=== PATIENT | female | born 1975 | race Caucasian/White ===

== ENCOUNTER 2018-04-08 14:20 | Outpatient (RCR) | payer BC, SELFPAY ==
--- NOTE | 2018-04-08 08:58 | PTTR_ITS ---
DATE: 04/08/18 SUBJECTIVE: Pt states that she is about 50-75% better and she was actually able to perform a 12 mile run the other day with only minimal discomfort. OBJECTIVE: Manual therapy: ([id number]). Pt placed in the supine position assessed very quickly through forefoot position of the ankle. She appears to have a significant forefoot varus with no significant postural abnormalities worthy of note at the rear foot and she is mobilized with a gentle stretch through the gastroc with the knee extended and then IASTM complete with long brush strokes in the grain of the muscle tissue and then cross grain feathering techniques for down regulation. This is done mainly for mechanoreceptors stimulation but also tissue remodeling particularly through the medial gastroc head. She is then seen by Victorino Ayala PT for consultation for orthotic fabrication. Direct treatment time: 25 minutes Total treatment time: 25 minutes.
--- NOTE | 2018-04-08 14:12 | PTTR_ITS ---
DATE: 04/08/18 SUBJECTIVE: Allie complains of intermittent discomfort throughout the posterior medial aspect of the L lower leg. This generally occurs with running and stretching and palpation. 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 6 weeks ago. She is being by Dr. Victorino Alfred, who asked for my opinion regarding orthotic devices. Allie has been an avid runner through high school and college, and continues to run on a regular basis.She is scheduled to run the [employer] in July and is trying to stay on schedule; she ran 12 miles the other day. She generally runs 30-40 miles/week. In the standing position she is a pronator, which is associated with calcaneal valgus and forefoot abduction. She has some mild tibial varum. She also has hypertrophic MP joints of her great toes, L greater than R.She had some knee issues when running in and has been wearing orthotic devices since. These seem to have helped her knee pain. Her current orthotic device is a semi-rigid orthotic in good condition. Articular: Bilateral hip, knee, talocrural, subtalar and midtarsal movements are full and painless with movement. Negative pain with resistance to the posterior tibialis mechanism. Heel raising on the L creates some calf discomfort. Also, when placed on stretch she feels more tension through the medial aspect of her calf compared to the contralateral side. Palpation:She has tenderness throughout the entire calf, particularly with the medial gastroc belly. She has some mild tenderness over the posterior tibialis muscle. Nontender over the tendon and I can feel the attachment at the navicula. Subtalar neutral shows that she has a significant forefoot varus of approx. 12-13 degrees. Her rear foot alignment is WNL. Assessment:It appears she has suffered a medial gastroc belly tear L calf 6 weeks ago. She is improving and is responding well to the IASTM techniques, but she is symptomatic when she is running long distance.She ran a distance of 12 miles recently and has tried some cross training with biking and aqua jogging. I encourage her to continue with the low impact type activities to allow further healing to occur.She doesn't need to peak until July and she is still in a weakened state.She is to gradually increase her WB activities as she further heals. I do not see the need for changing her orthotic devices. It is comfortable and it seems to have had a positive effect on her knees. I don't think they had anything to do with her recent gastroc tear.She does have some early to moderate MP degenerative changes of her great toes, but still relatively good mobility of up to 60 degrees of extension. Plan: Will hold off on making any changes with her orthotic devices. I encourage her to continue to pursue treatment with Victorino Alfred DPT if she feels that this has been helpful. Therapeutic procedures ([id number]). Direct treatment time: 30 min Total treatment time: 30 min DLW/fw
== END 2018-05-02 23:59 | disposition home or self-care (01) ==
LOC: PT 14:20
PROVIDERS: PCP Nurse Practitioner Family; Referring Provider Nurse Practitioner Family; Visit Provider Nurse Practitioner Family
DX: M79.662 Pain in left lower leg (principal); M25.561 Pain in right knee; R26.89 Other abnormalities of gait and mobility; M25.851 Other specified joint disorders, right hip
CPT/HCPCS: 97110; 97140

== ENCOUNTER 2020-06-10 02:48 | Outpatient (CLI) | payer BC, SELFPAY ==
[2020-06-10 07:20] LABS: Abs Immature Grans 0.02 10^3/uL (0.0-0.06); Absolute Basophil Count 0.02 10^3/uL (0.0-0.2); Absolute Eosinophil Count 0.13 10^3/uL (0.0-0.7); Absolute Monocyte Count 0.36 10^3/uL (0.1-0.8); Absolute Neutrophil Count 2.55 10^3/uL (1.2-6.7); Basophils % 0.5; Eosinophils % 3.1; HCT 41.8 % (36.0-46.0); HGB 14.4 g/dL (11.2-15.7); Immature Grans % 0.5; Lymphocytes % 26.3; MCH 31.4 pg (27.0-33.0); MCHC 34.4 % (32.0-36.0); MCV 91.3 fL (80-95); MPV 9.5 fL (8.0-11.0); Monocytes % 8.6; Nucleated RBC 0 %; Platelet Count 212 10^3/uL (130-400); RBC 4.58 10^6/uL (3.93-5.22); RDW 11.9 % (11.7-14.6); RDW-SD 39.5 fL; WBC 4.18 10^3/uL (4.4-10.8)
[2020-06-10 08:09] LABS: Anion Gap 8.8 mmol/L (3-11); BUN 15 mg/dL (7-18); CO2 26.2 mmol/L (21.0-32.0); CREATININE 0.69 mg/dL (0.55-1.02); Calcium 8.7 mg/dL (8.5-10.1); Calculated LDL 95 mg/dL (<100); Chloride 106 mmol/L (98-107); Cholesterol 181 mg/dL (<200); Glucose 91 mg/dL (74-106); HDL Cholesterol 73 mg/dL (40-60); Potassium 4.4 mmol/L (3.5-5.1); Sodium 141 mmol/L (136-145); TSH (W/Ref FT4) 2.16 uIU/mL (0.36-3.74); Triglyceride 68 mg/dL (<150)
== END 2020-06-10 03:08 ==
PROVIDERS: PCP Nurse Practitioner Family; Visit Provider Family Medicine
DX: Z00.00 Encounter for general adult medical examination without abnormal findings (principal); Z13.220 Encounter for screening for lipoid disorders; Z13.228 Encounter for screening for other metabolic disorders; Z13.29 Encounter for screening for other suspected endocrine disorder
CPT/HCPCS: 36415; 80048; 80061; 84443; 85025

== ENCOUNTER 2021-05-16 15:01 | Outpatient (REF) | payer BC, SELFPAY ==
[2021-05-17 14:18] LABS: COVID-19 RT-PCR UVMMC Result Negative (Negative)
== END 2021-05-16 15:02 | disposition home or self-care (01) ==
LOC: NCHCN 15:01
PROVIDERS: PCP Nurse Practitioner Family; Referring Provider Nurse Practitioner Family; Visit Provider Nurse Practitioner Family
DX: Z20.822 Contact with and (suspected) exposure to COVID-19 (principal)
CPT/HCPCS: U0003

== ENCOUNTER 2021-06-06 09:55 | Outpatient (REF) | payer BC, SELFPAY ==
[2021-06-07 09:34] LABS: Hepatitis C Ab w Rflx HCV PCR Negative (Negative)
[2021-06-07 09:55] LABS: HIV-1/2 Ag & Ab Screen Negative (Negative)
[2021-06-07 16:29] LABS: COVID-19 RT-PCR UVMMC Result Negative (Negative)
== END 2021-06-06 09:56 | disposition home or self-care (01) ==
LOC: NCHCN 09:55
PROVIDERS: PCP Nurse Practitioner Family; Visit Provider Nurse Practitioner Family
DX: Z00.00 Encounter for general adult medical examination without abnormal findings (principal); Z11.4 Encounter for screening for human immunodeficiency virus [HIV]; Z11.59 Encounter for screening for other viral diseases; Z20.9 Contact with and (suspected) exposure to unspecified communicable disease; F41.9 Anxiety disorder, unspecified
CPT/HCPCS: 86803; 87389; U0003

== ENCOUNTER 2022-05-04 09:24 | Emergency (ER) | payer BC, SELFPAY ==
[2022-05-04 09:28] VITALS: BP 139/59; PULSE 84; RESP 17; TEMP 36.8; O2SAT 100
[2022-05-04] MEDS: Ibuprofen 600 MG TAB PO (09:53)
--- NOTE | 2022-05-04 10:35 | DI.RAD_ITS ---
Exam(s) XR TIB/FIB RT EXAM: XR TIB/FIB RT CLINICAL HISTORY: dog bite TECHNIQUE: COMPARISON: No exams were available for comparison FINDINGS: Two views were obtained and show apparent soft tissue defect of the mid calf laterally. No underlyin g bony abnormality or foreign body is seen. IMPRESSION: RADIATION DOSE DELIVERED: Total DLP
--- NOTE | 2022-05-04 10:53 | W.ED.GENAD ---
Discharge Plan Disposition Patient Disposition: HOME Condition: Stable Discharge Details Clinical Impression: Dog bite of right lower leg Primary Care Provider: Twila Morgan ED Provider: Aydin Schultz Home Meds and New Rx's Prescriptions: New amoxicillin-pot clavulanate 875-125 mg tablet 1 tab PO BID 5 Days Qty: 10 0RF Continued bisacodyl [Dulcolax (bisacodyl)] 5 mg tablet,delayed release (DR/EC) 5 mg PO ONCE Qty: 4 0RF Rx Instructions: Take according to provider's instructions for colonoscopy prep. polyethylene glycol 3350 17 gram/dose powder 17 g PO ONCE Qty: 238 0RF Rx Instructions: To be taken as directed by prescriber's office for colonoscopy prep. Discharge Instructions Instructions: Animal Bite (ED) Additional Instructions: As discussed watch for any signs of worsening infection and return immediately if these occur. Otherwise take the antibiotic as prescribed and until fully completed. It is also recommended that you take a probiotic at least once daily in between your antibiotic doses. If you do develop some loose stools you may also take 1 glass of Metamucil/fiber supplement with your probiotic to see if this helps. Watch for any signs of infection and return immediately to the emergency department if these occur. Otherwise keep dressing in place for the next 24-48 hours and then keep wound clean and dry. Return to the emergency department 14 days for suture removal. Referrals: Twila Morgan [Primary Care Provider] - (As needed for reassessment) Discharge Data Discharge Date/Time-TO BE ENTERED AT DEPARTURE: 05/04/22 11:19 Medical Decision Making Patient presenting to the emergency department for dog bite to the right lower leg. Patient has a 3 and 4 cm superficial laceration to the right lower leg but there is also a 1-1/2 cm laceration to the anterior leg and a 1 and half centimeter lacerations to the posterior calf. There is surrounding tenderness otherwise exam is unremarkable. Patient is up-to-date on her tetanus. Did discuss with patient rabies prophylaxis but at this time this treatment is deferred due to it being a neighbors domesticated dog. Radiological imaging was performed due to a larger dog bite. No obvious findings were noted for bony involvement. Wounds were thoroughly irrigated and loosely approximated. Patient placed upon Augmentin for 5 days and return and follow-up precautions discussed. After discussion of diagnosis and plan of care patient has no further needs, questions, or concerns and states clear understanding to return to the emergency department for any worsening symptoms. This documentation was generated using [employer] system, please disregard any oddities of phrase or misspellings. Imaging Data Radiologic Study: Attestation: I personally reviewed and interpreted this imaging study as follows: Imaging: X-Ray Radiologist's impression: FINDINGS: Two views were obtained and show apparent soft tissue defect of the mid calf laterally. No underlying bony abnormality or foreign body is seen. IMPRESSION: HPI General Mode of arrival: ambulatory. Date/Time Provider Initiated Documentation: 05/04/22 09:38. Limitations to Documentation: no limitations. Information obtained by: RN notes reviewed. History of Present Illness 47 year old F presents to the emergency department with the chief complaint of Right leg dog bite, described as moderate, with intensity rated at 8. Quality is described as aching and sharp, and is localized to the right and lower extremity. Patient reports no radiation. Patient started experiencing this minute(s) (30) and it has been constant. No relieving factors improve symptom(s), No exacerbating factors reported . Patient notes no other symptoms.. Patient did receive the following treatments prior to arrival, none Related Data Home Medications Medication Instructions Recorded Confirmed bisacodyl 5 mg tablet,delayed 5 mg PO ONCE #4 tabs 05/03/22 05/04/22 release (Dulcolax (bisacodyl)) polyethylene glycol 3350 17 17 g PO ONCE #238 grams 05/03/22 05/04/22 gram/dose oral powder amoxicillin 875 mg-potassium 1 tab PO BID 5 days #10 tabs 05/04/22 clavulanate 125 mg tablet Previous Rx's Medication Instructions Recorded bisacodyl 5 mg tablet,delayed 5 mg PO ONCE #4 tabs 05/03/22 release (Dulcolax (bisacodyl)) polyethylene glycol 3350 17 17 g PO ONCE #238 grams 05/03/22 gram/dose oral powder amoxicillin 875 mg-potassium 1 tab PO BID 5 days #10 tabs 05/04/22 clavulanate 125 mg tablet Allergies Allergy/AdvReac Type Severity Reaction Status Date / Time No Known Allergies Allergy Verified 05/04/22 09:31 General Stated Complaint: AnimalBite CAROLA: 4 Review of Systems Narrative: 6 systems reviewed and unremarkable except what is marked below. Musculoskeletal Musculoskeletal: Denies joint swelling, Denies limited range of motion, Denies numbness and Denies tingling Integumentary/Breasts Skin/Breast: Reports as per HPI and Reports wounds Neurologic Neurologic: Denies numbness and Denies tingling PFSH All Active Problems (Updated 05/04/22 @ 11:07 by Aydin Schultz NP) Dog bite of right lower leg (Acute) Screening for colon cancer (Acute) Cerumen impaction (Acute) Medical History (Updated 05/04/22 @ 11:07 by Aydin Schultz NP) Anxiety Chronic headaches Epidermoid cyst Grief at loss of child Hearing loss Hip pain, left Palpitations Social History Smoking/Tobacco Use Status: Never Smoking risk assessment performed?: Yes Alcohol Intake: current Alcohol Intake frequency: a few times a month Alcohol type: other Drug use: Never Substance use type: does not use Do you feel safe at home: Yes Do you feel safe in your relationship?: Yes Exam Const General: cooperative, no acute distress and not ill appearing Orientation: alert, awake and oriented x3 Resp Effort & Inspection: normal respiratory effort, able to speak in complete sentences and no respiratory distress Cardio Rate: regular rate Rhythm: regular rhythm Pulses: normal peripheral pulses Skin General skin exam: no rashes or lesions noted Neuro General: patient alert, patient awake, patient oriented x3, moves all extremities and no focal motor deficits Sensory Exam: no sensory deficits noted Extrem General: capillary refill normal and normal exam except as noted Right lower extremity: lower leg Details: laceration (2 superficial and 2 deep lacerations) Upper/lower leg/hip images: 1. deep lac 1.5cm 2. superficial lac 4 cm 3. deep lac 1.5cm 4. superficial lac 3 cm Course Vital Signs Vital signs: Vital Signs Temperature 36.8 C 05/04/22 09:28 Pulse 84 05/04/22 09:28 Respiratory Rate 17 05/04/22 09:28 Blood Pressure 139/59 L 05/04/22 09:28 Pulse Oximetry 100 05/04/22 09:28 Temperature 36.8 C 05/04/22 09:28 Temperature Source Temporal Artery Scan 05/04/22 09:28 Pulse 84 05/04/22 09:28 Respiratory Rate 17 05/04/22 09:28 Respiratory Effort Non-Labored 05/04/22 09:29 Blood Pressure 139/59 L 05/04/22 09:28 Blood Pressure Position Sitting 05/04/22 09:28 Pulse Oximetry 100 05/04/22 09:28 Oxygen Delivery Method Room Air 05/04/22 09:28 Oxygen Flow Rate 0 05/04/22 09:28 Pain Level 8 05/04/22 09:28 Procedures Laceration Laceration 1: Site: lower extremity Side (If applicable): right Size (cm): 1.5 Description: linear and flap Depth: simple, single layer Local Anesthetic: Lidocaine 1% and with Epi Amount of anesthesia used (mL): 3 Pre-repair: wound explored, irrigated extensively and deep structures intact Skin layer closed with: other (Prolene) Size (cm): 4-0 Number of sutures: 2 Technique: simple, interrupted Laceration 2: Site: lower extremity Side (If applicable): right Size (cm): 1.5 Description: linear Depth: simple, single layer Local Anesthetic: Lidocaine 1% and with Epi Amount of anesthesia used (mL): 2 Pre-repair: wound explored, irrigated extensively and deep structures intact Skin layer closed with: other (prolene) Size (cm): 4-0 Number of sutures: 2 PAWSS Have you Been Recently Intoxicated or Drunk Within the Last 30 days?: No Have you Ever Experienced Previous Episodes of Alcohol Withdrawal?: No Have you ever Experienced Withdrawal Seizures?: No Have you ever Experienced Delirium Tremens(DT)s?: No Have you ever undergone Alcohol Rehabilitation Treatment (i.e, inpt ot outpatient treatment programs)?: No Have you ever Experienced Blackouts?: No Have you ever Combined Alcohol with other Downers within the last 90 days?: No Have you ever Combined Alcohol with any other Substance of Abuse during the last 90 days?: No Result: 0
[2022-05-04] MEDS: Amoxicillin 875/Clav. 125 TAB PO (11:16)
== END 2022-05-04 11:19 | disposition home or self-care (01) ==
PROVIDERS: Emergency Provider Nurse Practitioner Family; PCP Nurse Practitioner Family
DX: S81.811A Laceration without foreign body, right lower leg, initial encounter (principal); W54.0XXA Bitten by dog, initial encounter
CPT/HCPCS: 12002; 99283; 73590; 99284

== ENCOUNTER 2022-05-18 08:10 | Day surgery (SDC) | payer BC, SELFPAY ==
--- NOTE | 2022-05-17 19:23 | W.COLOREPORT ---
Colonoscopy Report Date of procedure: 05/18/22 Pre-op diagnosis general: crc screening Post-op diagnosis procedure note: other (normal) Surgeon: Gia Vu Anesthesia Type: General:No Airway Estimated blood loss (mL): 0 Pathology: none sent Complications: None Disposition: same day Prep: Miralax/Dulcolax Retraction Time: 8 mins Findings: After informed consent was obtained the patient was taken to the procedure room and placed in a left decubitous position. Monitors were applied and a time out was done. The patients name, date of , procedure, allergies to medications and metal in their body was reviewed. The patient was then sedated. Once sedated and comfortable a rectal exam was done. External exam was normal. Internal exam revealed a normal sphincter tone and no palpable masses. The scope was then introduced and retrofelexed. The prep was a BBPS 3 in all segments for total of 9 No internal hemorrhoids were identified. The scope was then advanced to the cecum difficulty. The TI and appendiceal orifice were identified. The scope was then slowly retracted over 8 minutes back into the rectum. There are no polyps, AVMs, diverticula or other abnormalities.. The Mucosa is pink and healthy with a normal vascular pattern. The is The scope was removed and the patient was woken up and taken back to Same day surgery in stable condition. The patient tolerated the procedure well and there were no immediate complications. Follow up: The patient should follow up in 10 years unless they develop changes in bowel habits or other new gastrointestinal complaints.
--- NOTE | 2022-05-17 19:24 | PDOC.DSDIS_ITS ---
Discharge Plan Disposition Patient Disposition: HOME Condition: Good Discharge Details Reason For Visit: colon scope Attending Provider: Gia Vu Primary Care Provider: Twila Morgan Home Meds and New Rx's Prescriptions: Discontinued bisacodyl [Dulcolax (bisacodyl)] 5 mg tablet,delayed release (DR/EC) 5 mg PO ONCE Qty: 4 0RF Rx Instructions: Take according to provider's instructions for colonoscopy prep. polyethylene glycol 3350 17 gram/dose powder 17 g PO ONCE Qty: 238 0RF Rx Instructions: To be taken as directed by prescriber's office for colonoscopy prep. Discharge Instructions Additional Instructions: DSU Colonoscopy Post- Op Instructions Instructions for Everyone who is given Anesthesia: For your safety, please do the following for the next twenty-four (24) hours: *Do Not operate a motor vehicle (car, truck, motorcycle, etc.) *Do Not drink alcoholic beverages or use any recreational drugs for the first 24 hours or while taking pain medications. The medications in your body may have a reaction that can be dangerous. *Do Not make any important decisions or sign any important papers. Findings: Normal Follow up: Repeat in 10 years time 1. No lifting over 20 pounds or strenuous activity for the first 24 hours after your procedure. After 24 hours there are no restrictions on your activity but you may feel fatigued for a few days. 2. After you arrive home you may have a light meal and return to your normal diet as you can tolerate it without feeling sick to your stomach. 3. You may have a bloated, gaseous feeling in your belly (abdomen) after a col onoscopy. Passing gas and belching will help. Walking or lying down on your left side with your knees flexed may relieve the discomfort. Call the office at [phone] (Office) or [phone] (Hospital) right away if you notice any of the following: a.Vomiting of blood or ?coffee ground stools?. b.Rectal bleeding 1Tbsp, blood clots or continuous bleeding. c.Severe belly (abdominal) pain. d.A hard distended belly (abdomen) and an inability to pass gas. 4. Please don?t expect to have a normal BM (bowel movement) for 2-3 days after your procedure. 5. If there are questions regarding the findings of your procedure, please contact your doctor 6. If you are unable to contact your doctor with a problem, contact the hospital at [phone]. 7. Continue all your regular medications unless directed otherwise. I understand the above instructions and have no questions. Signature of Patient or Adult Escort Name of Responsible Adult Escort Signature of Nurse Date/Time Activity:: see above Diet:: see above Discharge Orders Discharge Orders: Discharge Order (Routine); Ordered 05/17/22 Ordered By: Gia Vu
[2022-05-18 08:27] VITALS: BP 127/78; PULSE 74; RESP 18; TEMP 36.4; O2SAT 100
[2022-05-18] MEDS: Lactated Ringers 1,000 ML 80 ML IV (08:56)
--- NOTE | 2022-05-18 09:04 | ANES.PREOP_ITS ---
General Info Date of Service Date Performed: 05/18/22 Height: 5 ft 5 in Weight: 54.8 kg Body Mass Index (BMI): 20.0 Surgical Procedure: Operation Date: 05/18/22 09:50 Proposed Procedure Side Surgeon p Colonoscopy Gia Vu, Actual Procedure Side Surgeon p Colonoscopy Gia Vu, Pre-Op Diagnosis Post-Op Diagnosis colon scope Meds Allergies and Home Medications Allergies Allergy/AdvReac Type Severity Reaction Status Date / Time No Known Allergies Allergy Verified 05/04/22 09:31 Current Visit Medications: Current Medications Generic Name Dose Route Start Last Admin Trade Name Freq PRN Reason Stop Dose Admin Hyoscyamine Sulfate 0.125 mg 05/17/22 19:23 Hyoscyamine 0.125 Mg Sl/Oral/Chew SL DIRECTED PRN Ringer's Solution 1,000 mls @ 80 mls/hr 05/18/22 06:00 05/18/22 08:56 IV 06/16/22 23:59 80 mls/hr INFUSION SHER Administration IV Miscellaneous Supplies 1 each 05/18/22 06:00 Iv Access IV 06/16/22 23:59 DIRECTED SHER Ondansetron HCl 4 mg 05/17/22 19:23 Ondansetron 4 Mg/2 Ml Vial IVP Q4H PRN PRN Nausea / Vomiting Sodium Chloride 0 ml 05/18/22 06:00 Normal Saline Flush 10 Ml Syr IV 06/16/22 23:59 PRN PRN Sodium Chloride 0 ml 05/18/22 06:00 Normal Saline 10 Ml Vial IJ 06/16/22 23:59 DIRECTED PRN Sterile Water 0 ml 05/18/22 06:00 Water,Injection,Sterile 10 Ml Vial IJ 06/16/22 23:59 DIRECTED PRN PFSH Active Problems Active Problems: Problem Status Onset Code Cerumen impaction H61.20 Screening for colon cancer Z12.11 Dog bite of right lower leg S81.851A, W54.0XXA Medical History Medical History Anxiety Chronic headaches Epidermoid cyst Grief at loss of child Hearing loss Hip pain, left Palpitations Per pt. states its either anxiety of caffeine related Tobacco Smoking/Tobacco Use Status: Never Alcohol Alcohol Intake: current Alcohol intake frequency: a few times a month Alcohol ty pe: other Substance Use Substance use: Never Substance use type: does not use Vital Signs and Lab Results Vital Signs Most Recent Vital Signs in EMR: Most Recent Vital Signs Temp Pulse Resp BP Pulse Ox 36.4 C L 74 18 127/78 100 05/18/22 08:27 05/18/22 08:27 05/18/22 08:27 05/18/22 08:27 05/18/22 08:27 Point of Care Results Point of Care Results: POC- Test(urine) Negative 05/18/22 08:34 Lab Results Blood Type / Crossmatch: No Data to Display Complete Blood Count: No Data to Display Complete Metabolic Panel: No Data to Display Liver Function Panel: No Data to Display Coagulation Panel: No Data to Display Cardiac Panel: No Data to Display Arterial Blood Gas: No Data to Display Venous Blood Gas: No Data to Display Pancreas Panel: No Data to Display Thyroid Panel: No Data to Display Infectious Disease: No Data to Display Blood Cultures: No Data to Display Toxicology Panel: No Data to Display Panel: No Data to Display Anesthesia Assessment and Plan Anesthesia History Personal History: No History of Anesthesia Complications Family History: No Family History of Anesthesia Complications Exercise Tolerance Exercise Tolerance: Metabolic Equivalents>4 Cardiac & Pulmonary Exam Cardiac Exam: Normal S1/S2 Heart Sounds Pulmonary Exam: Clear Bilateral Breath Sounds Implantable Cardiac Device Does patient have a Pacemaker or an ICD?: No Airway Exam Known Difficult Airway: No Mallampati Class: 3 Mouth Opening: Normal (> 3cm) Thyromental Distance: Greater than 3 cm Neck Range of Motion: Full ROM Neck Circumference: Normal Teeth Condition: Normal Dentition ASA Classification ASA Score: ASA 2 Emergency Case?: No NPO Status NPO Status: NPO Clears >2 hours, Solids >8 hours Status Status: Negative HCG Anesthesia Plan Resuscitation Status: Full Code Anesthesia Technique: General Anesthesia Airway Planned: Natural Airway Monitors Used: Standard Monitors
--- NOTE | 2022-05-18 09:46 | W.ANESPOSTOP ---
Postoperative Evaluation Date, Time and Location Date Performed: 05/18/22 Time Performed: 09:46 Patient Location: Day Surgery Unit Vital Signs Most Recent Imported Vital Signs: Most Recent Vital Signs Temp Pulse Resp BP Pulse Ox 36.4 C L 74 18 127/78 100 05/18/22 08:27 05/18/22 08:27 05/18/22 08:27 05/18/22 08:27 05/18/22 08:27 Most Recent Manually Entered Vital Signs: Adult Blood Pressure: 100/60 Heart Rate: 62 Respirations: 12 Oxygen Saturation (%): 100 Temperature (C): 36.3 C Pain Score (0-10 Scale): 0 Pain Score Most Recent Pain Score: Most Recent Pain Score Pain Level 0 05/18/22 08:27 Assessment Mental Status: Awake (Alert & Oriented to Patient Baseline) Airway and Respiratory Function: Patent airway with normal (patient baseline) respiratory exam Cardiovascular Function: Hemodynamically Stable Hydration Status: Adequately Hydrated Nausea & Vomiting: No Nausea or Vomiting Pain: Pt. Denies Any Pain Peripheral Nerve Block: Patient did not receive a nerve block
[2022-05-18 09:48] VITALS: BP 100/60; PULSE 62; RESP 12; TEMPC 36.3; O2SAT 100
[2022-05-18 09:49] VITALS: BP 100/60; PULSE 60; RESP 16; TEMP 36.4; O2SAT 100
[2022-05-18 10:20] VITALS: BP 103/61; PULSE 57; RESP 16; TEMP 36.4; O2SAT 100
== END 2022-05-18 10:40 | disposition home or self-care (01) ==
LOC: SUR 08:11
PROVIDERS: PCP Nurse Practitioner Family; Visit Provider Surgery
PROC: 0DJD8ZZ Inspection of Lower Intestinal Tract, Via Natural or Artificial Opening Endoscopic (ICD-10-PCS; CPT 45378; principal; 2022-05-18 09:45)
DX: Z12.11 Encounter for screening for malignant neoplasm of colon (principal); F41.9 Anxiety disorder, unspecified
CPT/HCPCS: 45378; 81025

== ENCOUNTER 2022-07-02 14:56 | Outpatient (REF) | payer BC, SELFPAY ==
--- NOTE | 2022-07-02 10:00 | PAPFT_PTH ---
PATIENT: Allie Lassiter LOC: [facility]#:[id number] AGE/SX: 47/F ROOM: RE07/02/[address]: Twila Morgan : 1975 BED: DIS: 07/02/2022 SPEC #: [id number] RECD: 07/02/22 16:16 STATUS: FAHEEM REQ #: [id number] MARTITA: 07/02/22 10:[address]: Twila Morgan DEPT: [facility], [facility] Cytology RECD BY: Leatha De La Garza Tissues: 1 - CX/ENDOCX FOR PAP SMEARS Procedures: PAP THIN PREP/UVM Screening HPV DNA PROBE Comments: [id number]
== END 2022-07-02 14:57 | disposition home or self-care (01) ==
LOC: NCHCN 14:56
PROVIDERS: PCP Nurse Practitioner Family; Visit Provider Nurse Practitioner Family
DX: F41.8 Other specified anxiety disorders; L65.8 Other specified nonscarring hair loss; Z00.00 Encounter for general adult medical examination without abnormal findings; Z12.4 Encounter for screening for malignant neoplasm of cervix; Z11.51 Encounter for screening for human papillomavirus (HPV); Z01.419 Encounter for gynecological examination (general) (routine) without abnormal findings
CPT/HCPCS: 88142; 84443; 87624

== ENCOUNTER 2022-07-25 17:29 | Outpatient (REF) | payer BC, SELFPAY ==
--- NOTE | 2022-07-25 14:00 | SKI_PTH ---
PATIENT: Allie Lassiter LOC: [facility]#:[id number] AGE/SX: 47/F ROOM: RE07/25/[address]: Darrius Sharma : 1975 BED: DIS: 07/25/2022 SPEC #: [id number] RECD: 07/25/22 17:55 STATUS: FAHEEM REQ #: [id number] MARTITA: 07/25/22 14:[address]: Darrius Sharma DEPT: Surgical Specimen RECD BY: Leatha De La Garza ENTERED: 07/25/22 17:55 SP TYPE: HILARY CHILDRESS DR: Twila Morgan Tissues: 1 - SKIN BIOPSY(SHAVE/PUNCH) Procedures: SKIN LEVEL 4 Comments: [id number]
== END 2022-07-25 17:30 | disposition home or self-care (01) ==
LOC: NCHCN 17:29
PROVIDERS: PCP Nurse Practitioner Family; Visit Provider Family Medicine
DX: L82.1 Other seborrheic keratosis (principal)
CPT/HCPCS: 88305

== ENCOUNTER 2023-04-16 13:57 | Outpatient (REF) | payer BC, SELFPAY ==
--- NOTE | 2023-04-16 11:15 | PAPFT_PTH ---
PATIENT: Allie Lassiter LOC: [facility]#:[id number] AGE/SX: 48/F ROOM: RE04/16/[address]: Laura Goode : 1975 BED: DIS: 04/16/2023 SPEC #: [id number] RECD: 04/17/23 10:04 STATUS: FAHEEM REHugh #: [id number] MARTITA: 04/16/23 11:[address]: Laura Goode DEPT: [facility] Cytology RECD BY: Corina Chavez ENTERED: 04/17/23 10:05 SP TYPE: PAPFT OTHR DR: Twila Morgan Tissues: 1 - CX/ENDOCX FOR PAP SMEARS Procedures: PAP THIN PREP/UVM Screening HPV DNA PROBE Comments: [id number]
[2023-04-16 18:05] LABS: Bilirubin Negative (Negative); Blood Negative (Negative); Clarity Clear (Clear); Glucose Negative (Negative); Ketones Negative (Negative); Leukocyte Esterase Large (Negative); Nitrite Negative (Negative); Specific Gravity <= 1.005 (1.005-1.025); Urobilinogen 0.2 mg/dL (Up to 0.2); pH 5.5 (5-8)
[2023-04-16 22:02] LABS: Bacteria Moderate HPF (Negative); C & S Indicated? No/Sq. Contamination; Casts Negative LPF (Negative); Crystals Negative HPF (Negative); Epithelial Cells Moderate HPF (Negative); Mucus Negative (Negative); RBC Negative HPF (0-2)
== END 2023-04-16 13:58 | disposition home or self-care (01) ==
LOC: NCHCN 13:57
PROVIDERS: PCP Nurse Practitioner Family; Visit Provider Nurse Practitioner Family
DX: R10.2 Pelvic and perineal pain (principal); R35.0 Frequency of micturition; N89.8 Other specified noninflammatory disorders of vagina; Z12.4 Encounter for screening for malignant neoplasm of cervix; Z11.51 Encounter for screening for human papillomavirus (HPV); Z01.419 Encounter for gynecological examination (general) (routine) without abnormal findings
CPT/HCPCS: 88142; 81003; 81015; 87480; 87510; 87624; 87660

== ENCOUNTER 2024-10-19 15:17 | Outpatient (REF) | payer BC, SELFPAY ==
[2024-10-19 21:46] LABS: Vitamin D 25 Total 33.9 ng/mL (30-100)
== END 2024-10-19 15:18 | disposition home or self-care (01) ==
LOC: NCHCN 15:17
PROVIDERS: PCP Nurse Practitioner Family; Visit Provider Nurse Practitioner Family
DX: Z00.00 Encounter for general adult medical examination without abnormal findings (principal)
CPT/HCPCS: 82306

== ENCOUNTER 2025-06-10 04:31 | Outpatient (CLI) | payer BC, SELFPAY ==
--- NOTE | 2025-06-10 | DI.MRI_ITS ---
Exam(s) MR LOWER EXTREMITY RT WO/W EXAM: MR LOWER EXTREMITY RT WO/W CLINICAL HISTORY: RT LOWER LIMB MASS SWELLING R22.41 S.T. DISORDER. TECHNIQUE: Multiplanar multisequence MRI of the right thigh was performed. CONTRAST MATERIAL: IV Contrast: 11 mL of Dotarem contrast administered. COMPARISON: US US SOFT TISSUE EXTREMITY from 05/17/2025 FINDINGS: BONES/JOINTS: No fracture or contusion pattern. No bone lesions identified. MUSCULOTENDINOUS STRUCTURES: There is mild increased signal seen in the hamstring tendon at its insertion site consistent with tendinosis and/or partial tear. There is a well-circumscribed mass within or adjacent to the right adductor bud muscle in the medial compartment of the thigh. It is homogen eously hyperintense on T2 weighted images and isointense to muscle on the T1 weighted images. It measures 3.3 AP by 3.3 transverse by 8.1 craniocaudad cm. Following contrast administration, there is mild heterogeneous enhancement noted. The musculature in the medial compartment is otherwise unremarkable. There is no muscular fatty atrophy. No other masses are identified. SOFT TISSUES: Please see above under musculotendinous structures. OTHER FINDINGS: None. IMPRESSION: 1. 3.3 x 3.3 x 8.1 cm mass within or adjacent to the right adductor bud muscle within the medial compartment of the thigh. Differential considerations include, but are not limited to, MFH, rhabdomyosarcoma, synovial sarcoma, fibromatosis or metastasis. 2. Hamstring tendinitis. DATA REPOSITORY:
[2025-06-10] MEDS: Normal Saline Flush 10 ML SYR IVP (08:39)
[2025-06-10] MEDS: Gadoterate meglumine 20 ML VIAL IVP (08:39)
== END 2025-06-10 04:51 ==
LOC: DI 04:31
PROVIDERS: PCP Nurse Practitioner Family; Visit Provider Nurse Practitioner Family
DX: R22.41 Localized swelling, mass and lump, right lower limb (principal); M79.89 Other specified soft tissue disorders
CPT/HCPCS: 73720

== ENCOUNTER 2025-06-25 13:33 | Outpatient (REF) | payer BC, SELFPAY ==
--- NOTE | 2025-06-25 14:05 | SKI_PTH ---
PATIENT: Allie Lassiter LOC: [facility] U#:[id number] AGE/SX: 50/F ROOM: RE06/25/[address]: Ambika Eastman MD : 1975 BED: DIS: 06/25/2025 SPEC #: [id number] RECD: 06/25/25 16:16 STATUS: FAHEEM REQ #: [id number] MARTITA: 06/25/25 14:[address]: Ambika Eastman DEPT: Surgical Specimen RECD BY: Leatha De La Garza ENTERED: 06/25/25 16:19 SP TYPE: SKI OTHR DR: Twila Morgan Tissues: 1 - SKIN BIOPSY(SHAVE/PUNCH) Procedures: SKIN LEVEL 4 Comments: [id number]
== END 2025-06-25 13:34 | disposition home or self-care (01) ==
LOC: LBN 13:33
PROVIDERS: PCP Nurse Practitioner Family; Referring Provider Student in an Organized Health Care Education/Training Program; Visit Provider Surgery
DX: C49.21 Malignant neoplasm of connective and soft tissue of right lower limb, including hip (principal)
CPT/HCPCS: 88305